=== PATIENT | female | born 1965 | race American Indian/Alaskan Native ===

== ENCOUNTER 2021-07-05 17:22 | Emergency (ER) | payer MEDICARE ==
[2021-07-05] MEDS ORDERED: hydrALAZINE 20 MG/1 ML INJ IV ONE (21:58)
--- NOTE | 2021-07-05 22:08 | Emergency Department Report ---
ED General Adult HPI - General Chief complaint: Weakness Stated complaint: WEAKNESS Time Seen by Provider: 07/05/21 21:49 Source: patient Mode of arrival: Ambulatory Limitations: No Limitations - History of Present Illness Initial comments: Patient is 55 years old female with history of hypertension and COPD. Patient is not compliant with her medication. Patient presented to the ER stating that she is having generalized weakness and she think that she have pneumonia. Patient stated that she has been coughing and having some shortness of breath wi th fatigue. She stated that she was told that her temperature was low. Patient stated that she is taking lisinopril 40 mg, amlodipine 10 mg and metoprolol 50 mg but she does not remember the last time she took this medication because she ran out of it. Patient denied any headache, neck pain, focal weakness numbness or tingling sensation. No bowel or bladder incontinence. - Related Data Allergies Allergy/AdvReac Type Severity Reaction Status Date / Time Sulfa (Sulfonamide Allergy Hives Verified 07/05/21 17:25 Antibiotics) ED Review of Systems ROS: Stated complaint: WEAKNESS Other details as noted in HPI Comment: All other systems reviewed and negative Constitutional: denies: chills, fever Respiratory: cough, shortness of breath. denies: wheezing Cardiovascular: palpitations. denies: chest pain Gastrointestinal: denies: abdominal pain, nausea, vomiting Musculoskeletal: denies: back pain Neurological: weakness. denies: headache, numbness, paresthesias, confusion, abnormal gait ED Physical Exam - General Limitations: No Limitations General appearance: alert, in no apparent distress - Head Head exam: Present: atraumatic, normocephalic, normal inspection - Eye Eye exam: Present: normal appearance - ENT ENT exam: Present: normal exam, normal orophraynx, mucous membranes moist - Neck Neck exam: Present: normal inspection, full ROM. Absent: tenderness, meningism us - Respiratory Respiratory exam: Present: normal lung sounds bilaterally - Cardiovascular Cardiovascular Exam: Present: regular rate, normal rhythm, normal heart sounds - GI/Abdominal GI/Abdominal exam: Present: soft, normal bowel sounds. Absent: distended, tenderness, guarding, rebound, rigid, organomegaly, mass, bruit, pulsatile mass, hernia - Extremities Exam Extremities exam: Present: normal inspection, full ROM, normal capillary refill. Absent: tenderness - Back Exam Back exam: Present: normal inspection, full ROM. Absent: CVA tenderness (R), CVA tenderness (L) - Neurological Exam Neurological exam: Present: alert, oriented X3, CN II-XII intact, normal gait, reflexes normal. Absent: motor sensory deficit - Psychiatric Psychiatric exam: Present: normal mood - Skin Skin exam: Present: warm, intact, normal color ED Course Vital Signs 07/05/21 07/05/21 07/05/21 17:23 17:27 23:05 Temperature 99.2 F Pulse Rate 104 H 104 H Respiratory 18 Rate Blood Pressure 225/148 Blood Pressure 232/154 [Right] O2 Sat by Pulse 100 Oximetry ED Medical Decision Making - Lab Data Result diagrams: 07/05/21 23:30 07/05/21 23:30 - Radiology Data Radiology results: report reviewed - Medical Decision Making Patient is 55 years old female with history of hypertension and COPD. Patient is not compliant with her medication. Patient presented to the ER stating that she is having generalized weakness and she think that she have pneumonia. Patient stated that she has been coughing and having some shortness of breath with fatigue. She stated that she was told that her temperature was low. Patient stated that she is taking lisinopril 40 mg, amlodipine 10 mg and metoprolol 50 mg but she does not remember the last time she took this medication because she ran out of it. Patient denied any headache, neck pain, focal weakness numbness or tingling sensation. No bowel or bladder incontinence. Chest x-ray showed bilateral infiltrates. Patient received labetalol IV with no improvement in her blood pressure. I started patient on Cardene drip. Patient BNP is more than 2000. Patient stated that she never been diagnosed with congestive heart failure before. Patient given Lasix 60 mg IV. I discussed the patient with Dr. Sales, he agreed to admit the patient to medical service for further management. Patient stated that she does not want to be admitted to the hospital. Patient refused to give any reason. Patient is alert, oriented x3 and able to make sound decision. Patient signed AGAINST MEDICAL ADVICE. Patient strongly advised to come back to the ER or go to another ER as soon as possible. Patient informed that her condition is critical and required to be admitted to the intensive care unit and leaving AGAINST MEDICAL ADVICE can cause permanent disability and even . Patient stated that she understood the instruction very well and she will follow-up with her primary care physician and she will come to the ER if her symptoms get worse. Critical Care Time: Yes Critical care time in (mins) excluding proc time.: 35 Critical care attestation.: If time is entered above; I have spent that time in minutes in the direct care of this critically ill patient, excluding procedure time. ED Disposition Clinical Impression: Hypertensive emergency, New onset of congestive heart failure, Bilateral pneumonia, Suspected COVID-19 virus infection Disposition: 07 LEFT AGAINST MEDICAL ADVICE Is pt being admited?: No Condition: Stable Instructions: Bacterial Pneumonia (ED), Hypertension (ED) Referrals: PRIMARY CARE, [Primary Care Provider] - 3-5 Days Forms: AMA Form, Work/School Release Form(ED)
--- NOTE | 2021-07-05 22:27 | XRay Report ---
CHEST 2 VIEWS INDICATION / CLINICAL INFORMATION: Weakness. COMPARISON: None available. FINDINGS: SUPPORT DEVICES: None. HEART / MEDIASTINUM: No significant abnormality. LUNGS / PLEURA: Patchy airspace opacities involving mid and lower lung zones bilaterally. No focal co nsolidation. No significant effusion. No pneumothorax. ADDITIONAL FINDINGS: No significant additional findings. IMPRESSION: 1. Multilobar pneumonia involving the bilateral mid and lower lung zones. Signer Name: Raad Knowles MD Signed: 07/05/2021 10:23 PM Workstation Name: [id number]
[2021-07-05 23:19] VITALS: BP 225/148
[2021-07-06 00:56] LABS: Hematocrit 36.2 % (30.3-42.9); Hemoglobin 11.8 gm/dl (10.1-14.3); Mean Corpuscular HGB Conc 33 % (30-34); Mean Corpuscular Volume 93 fl (79-97); Platelet Count 225 K/mm3 (140-440); Red Blood Count 3.88 M/mm3 (3.65-5.03); Red Cell Distribution Width 15.5 % (13.2-15.2)
[2021-07-06 01:09] LABS: BUN/Creatinine Ratio 22; Blood Urea Nitrogen 20 mg/dL (7-17); Calcium 8.1 mg/dL (8.4-10.2); Hemolysis Index 3
[2021-07-06 01:12] LABS: Alanine Aminotransferase 79 units/L (7-56); Albumin 3.5 g/dL (3.9-5)
[2021-07-06 01:14] LABS: Bilirubin,Direct < 0.2 mg/dL (0-0.2)
[2021-07-06] MEDS ORDERED: FUROSEMIDE 40 MG/4 ML INJ IV ONE (01:53)
[2021-07-06] MEDS ORDERED: AZITHROMYCIN/NS 500 MG/250 ML 500 MG/250 ML BAG IV ONE (01:54)
[2021-07-06] MEDS ORDERED: cefTRIAXone/NS 1 GM/50 ML 1 GM/50 ML BAG IV ONE (01:54)
[2021-07-06] MEDS ORDERED: niCARdipine DRIP 40 MG/200 ML BAG ONE (01:59)
[2021-07-06] MEDS ORDERED: niCARdipine DRIP 40 MG/200 ML BAG IV ONE (01:59)
[2021-07-06 03:07] LABS: Basophils % (Manual) 0 % (0.0-1.8); Total Cells Counted 100
[2021-07-06 03:08] LABS: Ovalocytes 1+; Platelet Estimate Consistent w Auto
== END 2021-07-06 02:33 | disposition left against medical advice (07) ==
LOC: ED 17:22
DX: I16.0 Hypertensive urgency (principal); I50.21 Acute systolic (congestive) heart failure; J18.8 Other pneumonia, unspecified organism; Z20.822 Contact with and (suspected) exposure to COVID-19
CPT/HCPCS: 36415; 71046; 80048; 80076; 83880; 84484; 85007; 85025; 87040; 96374; 99291; J3490; J0456

== ENCOUNTER 2021-07-29 13:26 | Emergency (ER) | payer MEDICARE ==
[2021-07-29 14:03] VITALS: BP 208/132
--- NOTE | 2021-07-29 14:32 | Event Note ---
ED Screening Note ED Screening Note: 56-year-old female presents to the ED complaining of bilateral lower leg extremity edema and shortness of breath. Patient stated that she was here previously on July 15 and left AMA after being diagnosed with hypertensive emergency ,new onset of CHF and bilateral pneumonia and suspected COVID-19 infection. Patient states that she has not seek any medical treatment since leaving the hospital and condition has worsened. Patient states that she is homeless currently living in a car and unable to be evaluated by a primary care doctor. She state no prior treatment to arrival. This initial assessment/diagnostic orders/clinical plan/treatment(s) is/are subject to change based on patients health status, clinical progression and re- assessment by fellow clinical providers in the ED. Further treatment and workup at subsequent clinical providers discretion. Patient/guardian urged not to elope from the ED as their condition may be serious if not clinically assessed and managed. Initial orders include: Labs, EKG, and chest x-ray
--- NOTE | 2021-07-29 15:16 | XRay Report ---
CHEST 2 VIEWS INDICATION: Dyspnea. COMPARISON: 07/05/2021 FINDINGS: Support devices: None. Heart: There is borderline to mild cardiomegaly. Lungs/pleura: Mild central pulmonary venous congestion is evident. Small right pleural effusion. No pneumothorax. Additional findings: None. IMPRESSION: Mild CHF Signer Name: Elfego Vega Jr, MD Signed: 07/29/2021 3:11 PM Workstation Name: [id number]
[2021-07-29 15:21] LABS: Bacteria,Urine 2+ /HPF (Negative); Bilirubin,Urine NEG (Negative); Blood,Urine NEG (Negative); Color,Urine Yellow (Yellow); Hyaline Casts,Urine 1 /LPF; Mucus,Urine FEW /HPF; Urobilinogen,Urine < 2.0 mg/dL (<2.0)
[2021-07-29 15:23] LABS: Protein,Urine >500 mg/dL (Negative)
[2021-07-29] MEDS ORDERED: NITROGLYCERIN 0.4 MG TAB SUBL SL PRN (15:36)
[2021-07-29] MEDS ORDERED: FUROSEMIDE 40 MG/4 ML INJ IV ONE (15:36)
[2021-07-29] MEDS ORDERED: ASPIRIN 81 MG TAB CHEW PO ONE (15:36)
[2021-07-29] MEDS ORDERED: amLODIPine 5 MG TAB PO ONE (15:36)
--- NOTE | 2021-07-29 15:36 | Emergency Department Report ---
ED General Adult HPI - General Chief complaint: Extremity Problem,Nontraumatic Stated complaint: BI LEG SWELLING PUI?: No Time Seen by Provider: 07/29/21 15:28 Source: patient, RN notes reviewed, old records reviewed Mode of arrival: Ambulatory Limitations: No Limitations - History of Present Illness Initial comments: The patient was evaluated in the emergency department for symptoms described in the history of present illness. He/she was evaluated in the context of the global COVID-19 pandemic, which necessitated consideration that the patient might be at risk for infection with the virus that causes COVID-19. Instituti onal protocols and algorithms that pertain to the evaluation of patients at risk for COVID-19 are in a state of rapid change based on information released by regulatory bodies including the CDC and federal and state organizations. These policies and algorithms were followed during the patient's care in the emergency department. Please note that these policies, procedures and recommendations changed on a rapid basis. During the history and physical examination I am chaperoned by fitness attendant Jina Sanchez The patient is a 56-year-old female with a presumed history of congestive heart failure, and hypertension, who was evaluated in this hospital last week, found to have evidence of hypertensive urgency, congestive heart failure and pulmonary infiltrates, who signed out AGAINST MEDICAL ADVICE in spite of reasonable medical recommendations. Today, the patient presents to the ER with a persistent complaints of lower extremity swelling, unintentional weight gain, and shortness of breath. She denies travel, surgery, immobilization, DVT/PE risk factors. She is not COVID- 19 vaccinated -: Gradual, days(s) Location: left, right, lower extremity Consistency: constant Improves with: rest Worsens with: movement - Related Data Previous Rx's Medication Instructions Recorded Last Taken Type Aspirin 325 mg PO ONCE #30 tablet 07/29/21 Unknown Rx Furosemide [Lasix] 20 mg PO QDAY #30 tablet 07/29/21 Unknown Rx Lisinopril [Zestril] 5 mg PO QDAY #30 tab 07/29/21 Unknown Rx Allergies Allergy/AdvReac Type Severity Reaction Status Date / Time Sulfa (Sulfonamide Allergy Hives Verified 07/05/21 17:25 Antibiotics) ED Review of Systems ROS: Stated complaint: BI LEG SWELLING Other details as noted in HPI Constitutional: denies: fever Eyes: denies: eye discharge ENT: denies: congestion Respiratory: orthopnea, shortness of breath, SOB with exertion, SOB at rest, wheezing Cardiovascular: chest pain, dyspnea on exertion, orthopnea, edema, syncope Gastrointestinal: denies: abdominal pain, nausea, vomiting, hematemesis, melena, hematochezia Genitourinary: denies: dysuria Musculoskeletal: arthralgia, myalgia Neurological: weakness Hematological/Lymphatic: denies: easy bleeding ED Past Medical Hx - Past Medical History Previous Medical History?: No - Surgical History Past Surgical History?: No - Medications Home Medications: Home Medications Medication Instructions Recorded Confirmed Last Taken Type Aspirin 325 mg PO ONCE #30 tablet 07/29/21 Unknown Rx Furosemide [Lasix] 20 mg PO QDAY #30 tablet 07/29/21 Unknown Rx Lisinopril [Zestril] 5 mg PO QDAY #30 tab 07/29/21 Unknown Rx ED Physical Exam - General Limitations: No Limitations General appearance: alert, obese - Head Head exam: Present: atraumatic, normocephalic - Eye Eye exam: Present: normal appearance, EOMI. Absent: nystagmus - ENT ENT exam: Present: normal exam, normal orophraynx, mucous membranes moist, normal external ear exam - Neck Neck exam: Present: normal inspection, full ROM. Absent: tenderness, meningismus - Respiratory Respiratory exam: Present: rales. Absent: respiratory distress, rhonchi, stridor - Cardiovascular Cardiovascular Exam: Present: tachycardia, normal heart sounds, JVD. Absent: bradycardia, irregular rhythm, systolic murmur, diastolic murmur, rubs, gallop - GI/Abdominal GI/Abdominal exam: Present: soft. Absent: distended, tenderness, guarding, rebound, rigid, pulsatile mass - Extremities Exam Extremities exam: Present: normal inspection, full ROM, pedal edema (3+ edema bilateral lower extremity), other (2+ pulses noted in the bilateral upper and lower extremities. There is no palpable cord. negative Homans sign. Muscular compartments are soft. The pelvis is stable.). Absent: calf tenderness - Back Exam Back exam: Present: normal inspection, full ROM. Absent: tenderness, CVA tenderness (R), CVA tenderness (L), paraspinal tenderness, vertebral tenderness - Neurological Exam Neurological exam: Present: alert, oriented X3, normal gait, other (No facial droop. Tongue midline. Extraocular movements intact bilaterally. Facial sensation intact to light touch in V1, V2, V3 distribution bilaterally. 5 and a 5 strength in 4 extremities. Sensation intact to light touch in 4 extremities.). Absent: motor sensory deficit - Psychiatric Psychiatric exam: Present: normal affect, normal mood - Skin Skin exam: Present: warm, dry, intact, normal color. Absent: rash ED Course Vital Signs 07/29/21 14:01 Temperature 98.8 F Pulse Rate 114 H Respiratory 16 Rate Blood Pressure 208/132 [Left] O2 Sat by Pulse 99 Oximetry ED Medical Decision Making - Lab Data Result diagrams: 07/29/21 13:50 07/29/21 15:39 Vital Signs 07/29/21 14:01 Temperature 98.8 F Pulse Rate 114 H Respiratory 16 Rate Blood Pressure 208/132 [Left] O2 Sat by Pulse 99 Oximetry Lab Results 07/29/21 07/29/21 07/29/21 Range/Units 13:50 13:50 15:39 WBC 4.7 (4.5-11.0) K/mm3 RBC 3.92 (3.65-5.03) M/mm3 Hgb 11.9 (10.1-14.3) gm/dl Hct 36.2 (30.3-42.9) % MCV 92 (79-97) fl MCH 30 (28-32) pg MCHC 33 (30-34) % RDW 15.5 H (13.2-15.2) % Plt Count 245 (140-440) K/mm3 Eos % (Auto) Zoo Keeper PT 14.1 (12.2-14.9) Sec. INR 0.98 (0.87-1.13) Sodium 136 L (137-145) mmol/L Potassium 4.1 (3.6-5.0) mmol/L Chloride 103.4 (98-107) mmol/L Carbon Dioxide 20 L (22-30) mmol/L Anion Gap 17 mmol/L BUN 12 (7-17) mg/dL Creatinine 1.2 (0.6-1.2) mg/dL Estimated GFR 57 ml/min BUN/Creatinine Ratio 10 % Glucose 99 (65-100) mg/dL Calcium 8.1 L (8.4-10.2) mg/dL Magnesium 1.90 (1.7-2.3) mg/dL Total Bilirubin 0.60 (0.1-1.2) mg/dL AST 51 H (5-40) units/L ALT 58 H (7-56) units/L Alkaline Phosphatase 48 (35-129) units/L Total Creatine Kinase (30-135) units/L Troponin T (0.00-0.029) ng/mL Total Protein 7.3 (6.3-8.2) g/dL Albumin 3.2 L (3.9-5) g/dL Albumin/Globulin Ratio 0.8 % Urine Color (Yellow) Urine Turbidity (Clear) Urine pH (5.0-7.0) Ur Specific [place] (1.003-1.030) Urine Protein (Negative) mg/dL Urine Glucose (UA) (Negative) mg/dL Urine Ketones (Negative) mg/dL Urine Blood (Negative) Urine Nitrite (Negative) Urine Bilirubin (Negative) Urine Urobilinogen (<2.0) mg/dL Ur Leukocyte Esterase (Negative) Urine WBC (Auto) (0.0-6.0) /HPF Urine RBC (Auto) (0.0-6.0) /HPF U Epithel Cells (Auto) (0-13.0) /HPF Urine Bacteria (Auto) (Negative) /HPF Hyaline Casts /LPF Urine Mucus /HPF Ur Yeast w Hyphae /HPF 07/29/21 07/29/21 07/29/21 Range/Units 15:39 15:39 Unknown WBC (4.5-11.0) K/mm3 RBC (3.65-5.03) M/mm3 Hgb (10.1-14.3) gm/dl Hct (30.3-42.9) % MCV (79-97) fl MCH (28-32) pg MCHC (30-34) % RDW (13.2-15.2) % Plt Count (140-440) K/mm3 Eos % (Auto) PT (12.2-14.9) Sec. INR (0.87-1.13) Sodium (137-145) mmol/L Potassium (3.6-5.0) mmol/L Chloride (98-107) mmol/L Carbon Dioxide (22-30) mmol/L Anion Gap mmol/L BUN (7-17) mg/dL Creatinine (0.6-1.2) mg/dL Estimated GFR ml/min BUN/Creatinine Ratio % Glucose (65-100) mg/dL Calcium (8.4-10.2) mg/dL Magnesium (1.7-2.3) mg/dL Total Bilirubin (0.1-1.2) mg/dL AST (5-40) units/L ALT (7-56) units/L Alkaline Phosphatase (35-129) units/L Total Creatine Kinase 91 (30-135) units/L Troponin T 0.012 (0.00-0.029) ng/mL Total Protein (6.3-8.2) g/dL Albumin (3.9-5) g/dL Albumin/Globulin Ratio % Urine Color Yellow (Yellow) Urine Turbidity Slightly-cloudy (Clear) Urine pH 5.0 (5.0-7.0) Ur Specific [place] 1.022 (1.003-1.030) Urine Protein >500 (Negative) mg/dL Urine Glucose (UA) Neg (Negative) mg/dL Urine Ketones Tr (Negative) mg/dL Urine Blood Neg (Negative) Urine Nitrite Neg (Negative) Urine Bilirubin Neg (Negative) Urine Urobilinogen < 2.0 (<2.0) mg/dL Ur Leukocyte Esterase Tr (Negative) Urine WBC (Auto) 16.0 H (0.0-6.0) /HPF Urine RBC (Auto) 23.0 (0.0-6.0) /HPF U Epithel Cells (Auto) 35.0 H (0-13.0) /HPF Urine Bacteria (Auto) 2+ (Negative) /HPF Hyaline Casts 1 /LPF Urine Mucus Few /HPF Ur Yeast w Hyphae Few /HPF - EKG Data -: EKG Interpreted by Nh EKG shows normal: sinus rhythm Rate: tachycardia - Radiology Data Radiology results: pending, report reviewed, image reviewed CHEST 2 VIEWS INDICATION: Dyspnea. COMPARISON: 07/05/2021 FINDINGS: Support devices: None. Heart: There is borderline to mild cardiomegaly. Lungs/pleura: Mild central pulmonary venous congestion is evident. Small right pleural effusion. No pneumothorax. Additional findings: None. IMPRESSION: Mild CHF Signer Name: Elfego Vega Jr, MD Signed: 07/29/2021 2:11 PM CHEST 2 VIEWS INDICATION / CLINICAL INFORMATION: Weakness. COMPARISON: None available. FINDINGS: SUPPORT DEVICES: None. HEART / MEDIASTINUM: No significant abnormality. LUNGS / PLEURA: Patchy airspace opacities involving mid and lower lung zones bilaterally. No focal consolidation. No significant effusion. No pneumothorax. ADDITIONAL FINDINGS: No significant additional findings. IMPRESSION: 1. Multilobar pneumonia involving the bilateral mid and lower lung zones. Signer Name: Raad Knowles MD Signed: 07/05/2021 9:23 PM Workstation Name: [id number] - Medical Decision Making Differential diagnosis, including but not limited to: Congestive heart failure, volume overload, cardiorenal syndrome, hypertensive urgency/emergency Assessment and plan: 56-year-old female with probable decompensated congestive heart failure, manifest by JVD, rales, lower extremity edema and elevated blood pressure. Patient presents as awake, alert, oriented, clinically sober and of sound mind at this time. She exhibits decision-making capacity. She is free from distracting injury. With witness present, . [place], I advised the patient that we recommended admission to the medical service for medical optimization for cardiac risk ratification, and management for acutely decompensated congestive heart failure. The risks of declining admission were discussed with the patient, including , disability, paralysis, and permanent loss of quality of life. Patient presents as awake, alert, oriented of sound mind, and free from distracting injury, and articulates decision-making capacity. Initially during my initial discussion with her, she indicated that she was agreeable to admission. However, she subsequently left AGAINST MEDICAL ADVICE. She left without receiving her discharge paperwork Critical care attestation.: If time is entered above; I have spent that time in minutes in the direct care of this critically ill patient, excluding procedure time. ED Disposition Clinical Impression: Acute congestive heart failure, Hypertensive urgency Disposition: 07 LEFT AGAINST MEDICAL ADVICE Is pt being admited?: No Does the pt Need Aspirin: No Condition: Undetermined Additional Instructions: you have left the hospital/emergency room AGAINST MEDICAL ADVICE. By leaving, you risked , disability, paralysis, permanent loss of quality of life. The ER is open 24 hours a day, 7 days a week. It never closes. Please return to the emergency room right away if and when you change your mind. If you decide not to return to the emergency room, please follow-up with the listed physician referrals as soon as possible. Referrals: [facility] [Provider Group] - [facility]. [facility] [Provider Group] - [facility]
[2021-07-29 16:13] LABS: Hematocrit 36.2 % (30.3-42.9); Hemoglobin 11.9 gm/dl (10.1-14.3); Mean Corpuscular HGB Conc 33 % (30-34); Mean Corpuscular Volume 92 fl (79-97); Platelet Count 245 K/mm3 (140-440); Red Blood Count 3.92 M/mm3 (3.65-5.03); Red Cell Distribution Width 15.5 % (13.2-15.2)
[2021-07-29 16:29] LABS: Albumin 3.2 g/dL (3.9-5); Calcium 8.1 mg/dL (8.4-10.2)
[2021-07-29 16:43] LABS: INR 0.98 (0.87-1.13)
[2021-07-29 18:58] LABS: Basophils % (Manual) 0 % (0.0-1.8); Ovalocytes Few; Platelet Estimate Consistent w Auto; Total Cells Counted 100
--- NOTE | 2021-07-30 11:00 | Electrocardiograph Report ---
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
== END 2021-07-29 16:23 | disposition left against medical advice (07) ==
LOC: ED 13:26
DX: I50.9 Heart failure, unspecified (principal); I16.0 Hypertensive urgency; Z79.899 Other long term (current) drug therapy
CPT/HCPCS: 36415; 71046; 80053; 81001; 82550; 83735; 83880; 84484; 85007; 85025; 85610; 87086; 93005; 93010; 99284; J1940

== ENCOUNTER 2021-07-29 19:02 | Emergency (ER) | payer MEDICARE | END 2021-07-29 21:30 | disposition left against medical advice (07) | LOC: ED 19:02 | DX: R22.43 Localized swelling, mass and lump, lower limb, bilateral (principal); Z53.21 Procedure and treatment not carried out due to patient leaving prior to being seen by health care provider ==

== ENCOUNTER 2021-07-30 06:08 | Emergency (ER) | payer MEDICARE ==
[2021-07-30 06:55] VITALS: BP 191/137
--- NOTE | 2021-07-30 07:15 | Emergency Department Report ---
ED Chest Pain HPI - General Chief Complaint: Chest Pain Stated Complaint: POSS PNEUMONIA Time Seen by Provider: 07/30/21 07:04 Source: patient Mode of arrival: Ambulatory Limitations: No Limitations - History of Present Illness Initial Comments: Chief complaint: I came back to get my results. She made me check back in. HPI: This is a 56-year-old female with history of hypertension and COPD who presents with left-sided chest pain. She was evaluated by my colleague on yesterday afternoon. She eloped. She stated that she was hungry. She went to her car to sleep. She does not want any further work-up. She states that she just wants to know her results. According to electronic medical record patient left AGAINST MEDICAL ADVICE after my colleague recommended admission for acutely decompensated congestive heart failure. MD Complaint: chest pain -: days(s) (2 days) Onset: during rest Pain Location: left chest Severity: mild Quality: dull Consistency: constant Improves With: nothing Worsens With: nothing - Related Data Previous Rx's Medication Instructions Recorded Last Taken Type Aspirin 325 mg PO ONCE #30 tablet 07/29/21 Unknown Rx Furosemide [Lasix] 20 mg PO QDAY #30 tablet 07/29/21 Unknown Rx Lisinopril [Zestril] 5 mg PO QDAY #30 tab 07/29/21 Unknown Rx Furosemide [Lasix TAB] 20 mg PO QDAY 14 Days #14 tablet 07/30/21 Unknown Rx Allergies Allergy/AdvReac Type Severity Reaction Status Date / Time Sulfa (Sulfonamide Allergy Hives Verified 07/05/21 17:25 Antibiotics) Heart Score - HEART Score History: Slightly suspicious EKG: Non-specific Age: 45-65 Risk factors: 1-2 risk factors Troponin: < normal limit HEART Score: 3 - EKG Read Time Time EKG Completed: 00:00 EKG Read Time: 00:00 - Critical Actions Critical Actions: 0-3 pts:0.9-1.7%risk of adverse cardiac event.Candidate for discharge ED Review of Systems ROS: Stated complaint: POSS PNEUMONIA Other details as noted in HPI Comment: All other systems reviewed and negative Constitutional: denies: chills Respiratory: denies: shortness of breath Cardiovascular: chest pain Gastrointestinal: denies: abdominal pain, nausea, vomiting ED Past Medical Hx - Past Medical History Previous Medical History?: Yes Hx Hypertension: Yes Hx COPD: Yes - Surgical History Past Surgical History?: Yes Additional Surgical History: left eye - Family History Family history: hypertension, other (Aunt has history of cardiac disease) - Social History Smoking Status: Never Smoker Substance Use Type: None - Medications Home Medications: Home Medications Medication Instructions Recorded Confirmed Last Taken Type Aspirin 325 mg PO ONCE #30 tablet 07/29/21 Unknown Rx Furosemide [Lasix] 20 mg PO QDAY #30 tablet 07/29/21 Unknown Rx Lisinopril [Zestril] 5 mg PO QDAY #30 tab 07/29/21 Unknown Rx Furosemide [Lasix TAB] 20 mg PO QDAY 14 Days #14 tablet 07/30/21 Unknown Rx ED Physical Exam - General Limitations: No Limitations General appearance: alert, in no apparent distress, other (No acute distress talkative appears comfortable) - Head Head exam: Present: atraumatic, normocephalic - Eye Eye exam: Present: normal appearance - ENT ENT exam: Present: mucous membranes moist - Neck Neck exam: Present: normal inspection - Respiratory Respiratory exam: Present: normal lung sounds bilaterally. Absent: respiratory distress, wheezes, rales, rhonchi - Cardiovascular Cardiovascular Exam: Present: regular rate, normal rhythm, normal heart sounds. Absent: systolic murmur, diastolic murmur, rubs, gallop - GI/Abdominal GI/Abdominal exam: Present: soft, normal bowel sounds - Extremities Exam Extremities exam: Present: normal inspection - Back Exam Back exam: Present: normal inspection - Neurological Exam Neurological exam: Present: alert, oriented X3 - Psychiatric Psychiatric exam: Present: normal affect, normal mood - Skin Skin exam: Present: warm, dry, intact, normal color. Absent: rash ED Course Vital Signs 07/30/21 06:43 Temperature 98.5 F Pulse Rate 106 H Respiratory 20 Rate Blood Pressure 191/137 O2 Sat by Pulse 99 Oximetry ED Medical Decision Making - Radiology Data Radiology results: report reviewed I reviewed radiology impression from chest radiograph obtained on yesterday 07/29/2021 - Medical Decision Making 1. Chest pain heart score 3, I reviewed troponin value yesterday within normal limits. Atypical for ACS. Patient refused repeat EKG on today. 2. Congestive heart failure: New diagnosis for patient, BNP elevated on 2 occasions in June and in July. Work-up yesterday also revealed mild transaminitis. Yesterday's chest radiograph revealed mild cardiomegaly with mild central pulmonary venous congestion. Mild right pleural effusion. Patient understands that "I have fluid on my heart." She does not desire to be admitted. 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 She recently moved from [facility]. I have faxed outpatient cardiology referral form to [facility] to expedite close follow-up. I have referred her to an internal medicine physician. I have prescribed 2 week supply of furosemide 20 mg tablet. Critical care attestation.: If time is entered above; I have spent that time in minutes in the direct care of this critically ill patient, excluding procedure time. ED Disposition Clinical Impression: Acute congestive heart failure, Hypertensive urgency Disposition: 01 HOME / SELF CARE / HOMELESS Is pt being admited?: No Does the pt Need Aspirin: No Condition: Stable Instructions: Heart Failure, Self Care, [id number], Heart Failure, Diagnosis, [id number] Prescriptions: Furosemide [Lasix TAB] 20 mg PO QDAY 14 Days #14 tablet Referrals: CLAU MONACO MD [Staff Physician] - 3-5 Days SHAYAN PETERSEN MD [Staff Physician] - 3-5 Days
== END 2021-07-30 07:50 | disposition home or self-care (01) ==
LOC: ED 06:08
DX: I11.0 Hypertensive heart disease with heart failure (principal); I50.9 Heart failure, unspecified; I16.0 Hypertensive urgency; I10 Essential (primary) hypertension; J44.9 Chronic obstructive pulmonary disease, unspecified; Z98.890 Other specified postprocedural states; Z88.2 Allergy status to sulfonamides
CPT/HCPCS: 99282